=== PATIENT | male | born 1980 | race Caucasian/White ===

== ENCOUNTER 2017-08-05 16:28 | Emergency (ER) | payer MEDICAID, SELFPAY ==
[2017-08-05 16:30] VITALS: BP 141/81; PULSE 92; RESP 16; TEMP 36.7; O2SAT 95; BMI 82.3
--- NOTE | 2017-08-05 17:10 | RAD_ITS ---
XR Elbow Min 3 Views INDICATION: LEFT ELBOW INJURY 2 MONTHS AGO COMPARISON: None TECHNIQUE: 3 views of the left elbow FINDINGS: Anterior fat pad is nondisplaced. The osseous structures are well aligned. On the lateral view, there is a tiny calcific density seen adjacent to the coronoid process. The osseous structures are otherwise intact. RAD/Elbow min 3 Views IMPRESSION: Tiny calcific density adjacent to the coronoid process, may be degenerative, tiny avulsion fracture not excluded. There is no evidence of associated joint effusion. at 1735 Reported and signed by: Ronda Nino MD Electronically Signed: Ronda Nino MD at 16:33 EST Tel , Service support ,
--- NOTE | 2017-08-05 17:53 | ED.DCSUM_ITS ---
- ER Visit Summary Date of Service: 08/05/17 Chief Complaint: Left elbow pain History of Present Illness: The patient is a 36 M presenting for evaluation secondary left elbow pain. Patient states that about a month ago he grabbed an extremely heavy object and injured his left elbow. He states that he has had continuous pain. Patient states that he needs clearance for work. Pain is worse with movement denies fevers. Physical Examination: Left arm exam shows normal range of motion of the shoulder elbow wrist and hand. There is focal tenderness to palpation over the lateral epicondyle. No deformity. No warmth or erythema or joint effusion. Test Results: -3 view of the elbow Emergency Department Course and Treatment: Patient presents with symptoms of lateral epicondylitis and will be treated with a course of Naprosyn and released to work. Disposition: Discharge Impression: 1. Lateral epicondylitis, left This note was generated with [employer] dictation software. It may contain incorrect words, spelling, and punctuation that were not noted in review of the chart prior to signing ED Disposition - Plan for ED Patient: Disposition: Home or Assisted Living Chief Complaint: Upper Extremity Injury Diagnosis: Lateral epicondylitis of elbow Instructions: ED Epicondylitis Lateral Elbow Prescriptions: Naproxen [Naprosyn] 500 mg PO BID PRN #20 tab Referrals: Julissa Tyler [NON-STAFF] -
== END 2017-08-05 17:58 | disposition home or self-care (01) ==
PROVIDERS: Emergency Provider Emergency Medicine
DX: M77.12 Lateral epicondylitis, left elbow (principal)
CPT/HCPCS: 73080; 99283

== ENCOUNTER 2017-08-19 11:16 | Emergency (ER) | payer MEDICAID, SELFPAY ==
[2017-08-19 11:18] VITALS: BP 145/97; PULSE 99; RESP 16; TEMP 36.9; O2SAT 94; BMI 38.5
--- NOTE | 2017-08-19 12:11 | ED.DCSUM_ITS ---
- ER Visit Summary Date of Service: 08/19/17 Chief Complaint: Need note to return to work History of Present Illness: The patient is a 36 M seen on August 05, 2017 and diagnosed with a lateral epicondylitis. He was sent to the emergency room for clearance to return to work. He presently has no symptoms. Physical Examination: 36-year-old gentleman in no distress. Axillary, median, radial and ulnar function intact. There is no evidence of trauma to the extremity. There is no tenderness over the lateral medial epicondyle. Test Results: None are indicated Emergency Department Course and Treatment: Patient was given a note to return to work without restrictions Treatment Plan: Return to work without restrictions Disposition: Discharged to home Impression: Medical clearance to return to work This note was generated with [employer] dictation software. It may contain incorrect words, spelling, and punctuation that were not noted in review of the chart prior to signing ED Disposition - Plan for ED Patient: Disposition: Home or Assisted Living Chief Complaint: Upper Extremity Injury Instructions: ED Screening Exam Medical Nonurgent Referrals: Care Physician,No Primary [Primary Care Provider] - As Needed
== END 2017-08-19 12:21 | disposition home or self-care (01) ==
PROVIDERS: Emergency Provider Emergency Medicine
DX: Z02.79 Encounter for issue of other medical certificate (principal); Z72.0 Tobacco use
CPT/HCPCS: 99282

== ENCOUNTER 2017-08-23 12:03 | Emergency (ER) | payer MEDICAID, SELFPAY ==
[2017-08-23 12:03] VITALS: BP 149/86; PULSE 98; RESP 19; TEMP 36.9; O2SAT 96; BMI 37.3
--- NOTE | 2017-08-23 12:39 | ED.VISSUMM ---
- ER Visit Summary Date of Service: 08/23/17 Chief Complaint: [] Knee pain History of Present Illness: The patient is a 36 M [] morbidly obese, complaining of left knee pain. He is concerned for meniscal injury and is requesting an MRI. He denies any acute injury. Does report he has had previous laparoscopic knee repair 4 years ago. Denies warmth to the knee. No other complaints at this time. Reports minimal improvement with NSAIDs. Physical Examination: [] Morbidly obese male in no acute distress. Cardiovascular exam is regular rate and rhythm. Lungs lungs are clear to auscultation. Abdomen is soft and nontender. Examination the left knee shows a negative anterior/posterior drawer sign. No pain with valgus and varus stress. Minimal discomfort with Apley's compression test. Test Results: [] None. Emergency Department Course and Treatment: [] Patient was informed he would not be able to provide an MRI in the emergency department for his noncritical presentation. He was encouraged to find a primary care physician and get an outpatient evaluation. Treatment Plan: [] Discharge to follow-up with PCP. Disposition: [] Discharge, stable. Impression: [] Left knee pain This note was generated with [employer] dictation software. It may contain incorrect words, spelling, and punctuation that were not noted in review of the chart prior to signing ED Disposition - Plan for ED Patient: Chief Complaint: Lower Extremity Injury Referrals: Care Physician,No Primary [Primary Care Provider] -
--- NOTE | 2017-08-23 12:41 | ED.DEP ---
ED Disposition - Plan for ED Patient: Disposition: Home or Assisted Living Chief Complaint: Lower Extremity Injury Instructions: ED Knee Pain [facility] Referrals: Care Physician,No Primary [Primary Care Provider] -
== END 2017-08-23 12:49 | disposition home or self-care (01) ==
LOC: ED 12:45
PROVIDERS: Emergency Provider Emergency Medicine
DX: M25.562 Pain in left knee (principal); E66.01 Morbid (severe) obesity due to excess calories; Z68.37 Body mass index [BMI] 37.0-37.9, adult
CPT/HCPCS: 99282

== ENCOUNTER 2017-08-27 15:54 | Emergency (ER) | payer MEDICAID, SELFPAY ==
[2017-08-27 15:55] VITALS: BP 144/82; PULSE 94; RESP 18; TEMP 36.2; O2SAT 95; BMI 38.7
--- NOTE | 2017-08-27 16:04 | RAD_ITS ---
STUDY: X-RAY - UNILATERAL RIBS ( RIGHT ) WITH CHEST REASON FOR EXAM: Male, 36 years old. RIGHT LOW AXILLARY RIB PAIN TECHNIQUE - RIBS: 4 view(s) of the ribs. TECHNIQUE - CHEST: Single AP portable view of the chest. COMPARISON: None. FINDINGS - RIBS: Normal visualized ribs without a demonstrated fracture. FINDINGS - CHEST: The lungs are clear and expanded. There is no demonstrated pleural abnormality. Normal size heart. Normal mediastinum and erika. Normal visualized pulmonary arteries. Normal visualized aortic arch and descending thoracic aorta. Normal visualized thoracic spine. Normal visualized ribs, clavicles, and shoulders. There is no demonstrated abnormality of the visualized soft tissue structures of the upper abdomen. RAD/Ribs Uni Min 3V w/PA Chest IMPRESSION: RIBS: Normal x-ray examination of the ribs. CHEST: Normal x-ray examination of the chest. Electronically Signed: Eyad Roach MD at 16:44 EDT , Service support ,
[2017-08-27] MEDS: Lidocaine 5% Patch 1 PATCH TOPICAL (16:58)
--- NOTE | 2017-08-27 17:13 | ED.VISSUMM ---
- ER Visit Summary Date of Service: 08/27/17 Chief Complaint: Rib pain History of Present Illness: The patient is a 36 M presenting for evaluation secondary to rib pain. Patient states that today he coughed very forcibly and had a sudden onset of right anterior rib pain. Patient states that the pain is sharp and continuous worse with coughing breathing and palpation. Denies any shortness of breath with it. Patient is a longtime smoker. Denies any hemoptysis associated with this. Review of systems otherwise negative. Physical Examination: Vital signs within normal limits normal oxygenation. Well-nourished obese male no acute distress. Moist mucous membranes. Heart regular rate and rhythm. No murmurs rubs gallops or Efren's crunch. Lung sounds clear to auscultation bilaterally with bilaterally symmetric breath sounds. There is right anterior chest tenderness to palpation without any evidence of deformity crepitus or flail chest. Remainder physical otherwise unremarkable. Test Results: Right-sided rib series negative per radiology Emergency Department Course and Treatment: Patient presented secondary to rib pain after coughing. X-ray shows no evidence of pneumothorax or rib injury. Patient was treated with a lidocaine patch. Patient will be discharged with a course of the same, he also is requesting a refill on his Protonix which she will be provided. Disposition: Discharge Impression: 1. Right-sided rib sprain 2. Medication refill This note was generated with [employer] dictation software. It may contain incorrect words, spelling, and punctuation that were not noted in review of the chart prior to signing ED Disposition - Plan for ED Patient: Disposition: Home or Assisted Living Chief Complaint: Chest Other Diagnosis: Rib sprain Instructions: ED Strain Chest Wall Prescriptions: Lidocaine [Lidoderm] 1 ea TP DAILY #10 adh..patch Pantoprazole Sodium [Protonix] 40 mg PO DAILY #30 tab Additional Instructions: Followup with your PCP as needed
--- NOTE | 2017-08-27 17:17 | ED.DCSUM_ITS ---
- ER Visit Summary Date of Service: 08/27/17 Chief Complaint: Rib pain History of Present Illness: The patient is a 36 M presenting for evaluation secondary to rib pain. Patient states that today he coughed very forcibly and had a sudden onset of right anterior rib pain. Patient states that the pain is sharp and continuous worse with coughing breathing and palpation. Denies any shortness of breath with it. Patient is a longtime smoker. Denies any hemoptysis associated with this. Review of systems otherwise negative. Physical Examination: Vital signs within normal limits normal oxygenation. Well -nourished obese male no acute distress. Moist mucous membranes. Heart regular rate and rhythm. No murmurs rubs gallops or Efren's crunch. Lung sounds clear to auscultation bilaterally with bilaterally symmetric breath sounds. There is right anterior chest tenderness to palpation without any evidence of deformity crepitus or flail chest. Remainder physical otherwise unremarkable. Test Results: Right-sided rib series negative per radiology Emergency Department Course and Treatment: Patient presented secondary to rib pain after coughing. X-ray shows no evidence of pneumothorax or rib injury. Patient was treated with a lidocaine patch. Patient will be discharged with a course of the same, he also is requesting a refill on his Protonix which she will be provided. Disposition: Discharge Impression: 1. Right-sided rib sprain 2. Medication refill This note was generated with [employer] dictation software. It may contain incorrect words, spelling, and punctuation that were not noted in review of the chart prior to signing ED Disposition - Plan for ED Patient: Disposition: Home or Assisted Living Chief Complaint: Chest Other Diagnosis: Rib sprain Instructions: ED Strain Chest Wall Prescriptions: Lidocaine [Lidoderm] 1 ea TP DAILY #10 adh..patch Pantoprazole Sodium [Protonix] 40 mg PO DAILY #30 tab Additional Instructions: Followup with your PCP as needed
[2017-08-27 17:33] VITALS: PULSE 81; RESP 16; O2SAT 96
== END 2017-08-27 17:34 | disposition home or self-care (01) ==
PROVIDERS: Emergency Provider Emergency Medicine
DX: S23.41XA Sprain of ribs, initial encounter (principal); X58.XXXA Exposure to other specified factors, initial encounter; Y93.89 Activity, other specified; Y92.9 Unspecified place or not applicable; Z76.0 Encounter for issue of repeat prescription; K21.9 Gastro-esophageal reflux disease without esophagitis; Z72.0 Tobacco use
CPT/HCPCS: 71101; 99283

== ENCOUNTER 2017-09-08 13:15 | Emergency (ER) | payer MEDICAID, SELFPAY ==
[2017-09-08 13:16] VITALS: BP 141/96; PULSE 102; RESP 16; TEMP 36.4; O2SAT 96; BMI 38.7
--- NOTE | 2017-09-08 13:36 | ED.VISSUMM ---
- ER Visit Summary Date of Service: 09/08/17 Chief Complaint: Knee pain History of Present Illness: The patient is a 36 M who presents with knee pain on the left side. Patient states that he has had knee pain for greater than a month. He was seen in the emergency department in July. In fact this is his fifth ER visit but not necessarily for the same knee pain. He saw [facility] on Friday. He states he has a MRI scheduled for September 15. He states that the only thing he needs me to do today is to fully immobilize his knee. He states he is taking Mobic for pain but it is not helping. He would like his leg completely immobilized so he cannot use it. Physical Examination: Vital signs are stable Gen: Well-nourished well-developed Head: Normocephalic atraumatic Eyes: Perrl EOMI ENT: TMs clear no rhinorrhea moist mucous membranes Neck: Supple no lymphadenopathy no JVD nontender CVS: Regular rate rhythm no murmurs normal S1-S2 Respiratory: No distress clear to auscultation bilaterally chest nontender Abdomen: Soft nontender nondistended normal bowel sounds no masses Back: Nontender Extremity: Left knee shows ligaments to be stable. There is no effusion or swelling. Patient complains of tenderness to palpation along the joint line bilaterally. Skin: Normal color no rash Neuro: alert orientated ?3 CN II-XII intact normal strength sensation reflexes gait cerebellar Psych: Normal affect normal mood Emergency Department Course and Treatment: I did inform the patient that fully immobilizing him when not necessarily needed is not a good option. I told him I give him crutches and have him do weightbearing as tolerated for support. He is to follow-up after his MRI is scheduled. Impression: 1. Left knee pain This note was generated with [employer] dictation software. It may contain incorrect words, spelling, and punctuation that were not noted in review of the chart prior to signing ED Disposition - Plan for ED Patient: Disposition: Home or Assisted Living Chief Complaint: Lower Extremity Injury Instructions: ED Knee Pain [facility] Referrals: Care Physician,No Primary [Primary Care Provider] - Additional Instructions: Crutches or for touchdown weightbearing. Follow-up with [facility] as scheduled and obtained her MRI is scheduled.
[2017-09-08 13:41] VITALS: BP 138/70; PULSE 95; RESP 14; O2SAT 99
--- NOTE | 2017-09-08 13:42 | ED.DCSUM_ITS ---
- ER Visit Summary Date of Service: 09/08/17 Chief Complaint: Knee pain History of Present Illness: The patient is a 36 M who presents with knee pain on the left side. Patient states that he has had knee pain for greater than a month. He was seen in the emergency department in July. In fact this is his fifth ER visit but not necessarily for the same knee pain. He saw [facility] on Friday. He states he has a MRI scheduled for September 15. He states that the only thing he needs me to do today is to fully immobilize his knee. He states he is taking Mobic for pain but it is not helping. He would like his leg completely immobilized so he cannot use it. Physical Examination: Vital signs are stable Gen: Well-nourished well-developed Head: Normocephalic atraumatic Eyes: Perrl EOMI ENT: TMs clear no rhinorrhea moist mucous membranes Neck: Supple no lymphadenopathy no JVD nontender CVS: Regular rate rhythm no murmurs normal S1-S2 Respiratory: No distress clear to auscultation bilaterally chest nontender Abdomen: Soft nontender nondistended normal bowel sounds no masses Back: Nontender Extremity: Left knee shows ligaments to be stable. There is no effusion or swelling. Patient complains of tenderness to palpation along the joint line bilaterally. Skin: Normal color no rash Neuro: alert orientated ?3 CN II-XII intact normal strength sensation reflexes gait cerebellar Psych: Normal affect normal mood Emergency Department Course and Treatment: I did inform the patient that fully immobilizing him when not necessarily needed is not a good option. I told him I give him crutches and have him do weightbearing as tolerated for support. He is to follow-up after his MRI is scheduled. Impression: 1. Left knee pain This note was generated with [employer] dictation software. It may contain incorrect words, spelling, and punctuation that were not noted in review of the chart prior to signing ED Disposition - Plan for ED Patient: Disposition: Home or Assisted Living Chief Complaint: Lower Extremity Injury Instructions: ED Knee Pain [facility] Referrals: Care Physician,No Primary [Primary Care Provider] - Additional Instructions: Crutches or for touchdown weightbearing. Follow-up with [facility] as scheduled and obtained her MRI is scheduled.
== END 2017-09-08 13:52 | disposition home or self-care (01) ==
PROVIDERS: Emergency Provider Emergency Medicine
DX: M25.562 Pain in left knee (principal)
CPT/HCPCS: 99283

== ENCOUNTER 2017-10-22 21:20 | Emergency (ER) | payer MEDICAID, SELFPAY ==
[2017-10-22 21:21] VITALS: BP 158/82; PULSE 99; RESP 16; TEMP 36.6; O2SAT 96; BMI 39.2
--- NOTE | 2017-10-22 22:56 | ED.DCSUM_ITS ---
- ER Visit Summary Date of Service: 10/22/17 Chief Complaint: Diarrhea and dehydration History of Present Illness: The patient is a 36 M reports having diarrhea all day today. He has had some mild nausea but no vomiting. He felt feverish at home but did not measure his fever. Denies any prior abdominal surgeries. He said some mild abdominal cramping. He thinks he may have eaten something bad. He feels that he is dehydrated. Past history significant for reflux disease, high cholesterol, and asthma Physical Examination: Vital signs are significant for blood pressure 158/82, otherwise unremarkable. Patient is in no acute distress and appears nontoxic. Head and neck examination reveals mildly dry mucous membranes. Heart is regular rate and rhythm. Lung sounds are clear. Abdomen is soft and nontender. Hyperactive bowel sounds are noted throughout. Test Results: CBC reveals a white count 12.5 with 78% neutrophils. Chemistry studies unremarkable. Emergency Department Course and Treatment: Patient is given a liter IV fluids and Zofran. He is ordered Bentyl but refused it. He told the nurses not to take anything he never heard of. On repeat evaluation he is in no acute distress. He is asking for something to eat. Patient be discharged with instructions to follow bland diet. If diarrhea persists beyond another day he can try Imodium [id number]. Treatment Plan: [] Disposition: Discharge Impression: Diarrhea This note was generated with [employer] dictation software. It may contain incorrect words, spelling, and punctuation that were not noted in review of the chart prior to signing ED Disposition - Plan for ED Patient: Chief Complaint: Nausea/Vomiting/Diarrhea Referrals: Dayanna Perez,Julissa Tyler [Primary Care Provider] -
[2017-10-22] MEDS: 0.9% Normal Saline 1,000 ML 1000 ML IV (23:03)
[2017-10-22] MEDS: Ondansetron 4 MG/2 ML Vial IV (23:03)
[2017-10-22 23:15] LABS: Absolute Lymphocyte Count 1.54 X10^3/ul (0.83-4.51); Absolute Neutrophil Count 9.8 X10^3/uL (2.0-7.7); Basophil# 0.06 X10^3/uL; Basophil% 0.5 % (0-1); Eosinophil# 0.11 X10^3/uL; Eosinophils% 0.9 % (0-5); Hematocrit 47.3 % (40-54); Hemoglobin 16.4 g/dl (13.0-16.5); Lymphocyte # 1.54 X10^3/ul (4.0); Lymphocyte % 12.4 % (19-41); Mean Corp Hgb Conc 34.7 g/gl (32-36); Mean Corpuscular Hgb 27.2 pg (27.0-32.0); Mean Corpuscular Volume 78.3 fL (80-94); Mean Platelet Vol. 9.4 fl (6.2-12.0); Monocyte# 0.88 X10^3/uL; Monocyte% 7.1 % (0-10); Neutrophil # 9.79 X10^3/uL (2.7-7.7); Neutrophil % 78.5 % (47-70); Platelet Count 336 K/mm3 (150-450); RBC Distribution Width CV 15.1 % (11.6-14.6); RBC Distribution Width SD 43.3 fl (35.1-43.9); Red Blood Count 6.04 M/mm3 (4.6-6.2); White Blood Count 12.5 K/mm3 (4.4-11.0)
[2017-10-22 23:18] LABS: POSITIVE COUNT NO; POSITIVE DIFFERENTIAL NO; POSITIVE MORPHOLOGY NO
[2017-10-22 23:30] LABS: Anion Gap 5 (5-15); BUN 15 mg/dL (7-18); BUN/Creat Ratio 15.6 RATIO (10-20); Calcium,Total 9.1 mg/dL (8.5-10.1); Chloride 104 mmol/L (98-107); Creatinine, Serum 0.96 mg/dL (0.70-1.30); EST Glomerular Filtration Rate 92 mL/min (>60); Est Glom Filt Rate - Afr Amer 112 mL/min (>60); Estimated Creatinine Clearance 104.33 ml/min; Glucose 98 mg/dL (74-106); Sodium Level 135 mmol/L (136-145)
--- NOTE | 2017-10-22 23:44 | ED.DEP ---
ED Disposition - Plan for ED Patient: Disposition: Home or Assisted Living Chief Complaint: Nausea/Vomiting/Diarrhea Instructions: ED Diet Vomiting Diarrhea Referrals: Julissa Stephens [Primary Care Provider] - 3-5 Days if not improving
[2017-10-23 00:04] VITALS: BP 145/90; PULSE 94; O2SAT 96
== END 2017-10-23 00:05 | disposition home or self-care (01) ==
PROVIDERS: Emergency Provider Emergency Medicine
DX: E86.0 Dehydration (principal); R19.7 Diarrhea, unspecified; K21.9 Gastro-esophageal reflux disease without esophagitis; E78.00 Pure hypercholesterolemia, unspecified; J45.909 Unspecified asthma, uncomplicated; Z79.899 Other long term (current) drug therapy; Z72.0 Tobacco use
CPT/HCPCS: 80048; 85025; 96374; 99283; J7030; A4216; J2405

== ENCOUNTER 2023-08-21 13:56 | Emergency (ER) | payer MEDICAID, SELFPAY ==
[2023-08-21 13:57] VITALS: BP 146/98; PULSE 88; RESP 18; TEMP 36.6; O2SAT 97; BMI 42.2
--- OUTSIDE RECORDS SUMMARY | 2023-08-21 19:57 | XMS RPT_ITS | CCD ---
Author Name Unknown Address [address] [place] [address] Organization [facility] Care Team Providers Care Roving Teller Name Role Phone Unavailable Primary Care Provider UnavailJessenia Mark Primary Care Provider [phone] Unavailable Primary Care Provider Unavailabl e Unavailable Primary Care Provider UnavailDeep Ferris DO Primary Care Provider Tonie Johnson MD Unavailable Tonie Johnson MD Unavailable Chay Saunders MD Primary Care Provider Chay Saunders MD Primary Care Provider [phone] Allergies Allergy Classification Reported Allergen(s) Allergy Type Date of Onset Reaction(s) Facility (13 sources) Onion extract; Translations: [ONION] Drug Allergy 01-21-2013 Hives, Swelling, Itching, Rash [facility] Medications Current Medications Medication Drug Class(es) Dates Sig (Normalized) Sig (Original) Adhesive Tape (ADHESIVE 1 X6YD) TAPE (1 source) Start: 11-10-2021 Adhesive Tape (ADHESIVE 1 X6YD) TAPE Apply tape around gauze. 1 each 0 11/10/2021 Active bacitracin zinc 0.5 unt/mg topical ointment (1 source) Start: 11-10-2021 End: 11-20-2021 bacitracin 500 UNIT/GM ointment Apply topically 2 times daily. 1 each 0 11/10/2021 11/20/2021 Active famotidine 20 mg oral tablet (1 source) Histamine-2 Receptor Antagonist Start: 08-26-2021 End: 09-09-2021 take 1 tablet by mouth twice daily famotidine (PEPCID) 20 mg tablet Take 1 tablet by mouth twice daily for 14 days. 28 tablet 0 08/26/2021 09/09/2021 Active Completed/Discontinued Medications Medication Drug Class(es) Dates Sig (Normalized) Sig (Original) [id number] 200 actuat albuterol 0.09 mg/actuat metered dose inhaler (14 sources) beta2-Adrenergic Agonist Start: 08-25-2021 End: 09-24-2021 take 2 puff(s) by inhalation every four hours as needed for wheezing albuterol HFA (PROVENTIL HFA, VENTOLIN HFA) 90 mcg/actuation inhaler Inhale 2 Puffs as instructed every 4 hours as needed for wheezing/shortnes s of breath. 18 g 0 08/25/2021 Active Problems Active Problems Problem Classification Problem Date Documented Date Episodic/Chronic Biliary tract disease (3 sources) Cholelithiasis AND cholecystitis without obstruction; Translations: [Calculus of gallbladder with chronic cholecystitis without obstruction] Episodic Diabetes mellitus without complication (12 sources) Type 2 diabetes mellitus without complication; Translations: [Type 2 diabetes mellitus without complications] Onset: 08-07-2020 08-07-2020 Chronic Disorders of lipid metabolism (9 sources) Hyperlipidemia; Translations: [Hyperlipidemia, unspecified] Onset: 08-07-2020 08-07-2020 Chronic Esophageal disorders (9 sources) Gastroesophageal reflux disease; Translations: [Gastro-esophageal reflux disease without esophagitis] Onset: 08-07-2020 08-07-2020 Chronic Nonspecific chest pain (1 source) Chest pain; Translations: [Chest pain, unspecified type] Episodic Other non-traumatic joint disorders (2 sources) Knee pain; Translations: [Chronic pain of left knee] Onset: 08-07-2020 08-07-2020 Episodic Other nutritional; endocrine; and metabolic disorders (10 sources) Severe obesity; Translations: [Morbid (severe) obesity due to excess calories] Onset: 08-07-2020 08-07-2020 Chronic Other skin disorders (1 source) Foot callus; Translations: [Callus of foot] Episodic Residual codes; unclassified (10 sources) Tobacco user; Translations: [Nicotine dependence, unspecified, uncomplicated] Onset: 08-07-2020 08-07-2020 Chronic Skin and subcutaneous tissue infections (1 source) Superficial bacterial infection of skin; Translations: [Local infection of the skin and subcutaneous tissue, unspecified] Episodic Unclassified (1 source) Patient encounter status; Translations: [Screening for deficiency anemia] Unclassified (1 source) OPENED IN ERROR Past or Other Problems Problem Classification Problem Date Documented Da te Episodic/Chronic Other non-traumatic joint disorders (6 sources) Pain in left knee; Translations: [Pain in joint, lower leg] Onset: 08-07-2020 08-07-2020 Episodic Results Test Name Value Interpretation Reference Range Facil ity Vital Signs Date Time Vital Sign Value Performing Clinician Facility 11-13-2021 11:31-0400 Body height 172.7 cm Birdie Ahmadi MD Work Phone: [facility] 11-13-2021 11:31-0400 Body weight 115.67 kg Birdie Ahmadi MD Work Phone: [facility] 11-13-2021 11:31-0400 Diastolic blood pressure 72 mm[Hg] Birdie Ahmadi MD Work Phone: [facility] 11-13-2021 11:31-0400 Heart rate 78 /min Birdie Ahmadi MD Work Phone: [facility] 11-13-2021 11:31-0400 Respiratory rate 22 /min Birdie Ahmadi MD Work Phone: [facility] 11-13-2021 11:31-0400 Systolic blood pressure 126 mm[Hg] Birdie Ahmadi MD Work Phone: [facility] 11-10-2021 11:43-0400 Body height 172.7 cm Anderson Lawson MD Work Phone: [facility] 11-10-2021 11:43-0400 Body mass index (BMI) [Ratio] 38.77 kg/m2 Anderson Lawson MD Work Phone: [facility] 11-10-2021 11:43-0400 Body weight 115.67 kg Anderson Lawson MD Work Phone: [facility] 11-10-2021 11:41-0400 Body temperature 97.3 [degF] Anderson Lawson MD Work Phone: [facility] 11-10-2021 11:41-0400 Diastolic blood pressure 74 mm[Hg] Anderson Lawson MD Work Phone: [facility] 11-10-2021 11:41-0400 Heart rate 86 /min Anderson Lawson MD Work Phone: [facility] 11-10-2021 11:41-0400 Respiratory rate 19 /min Anderson Lawson MD Work Phone: [facility] 11-10-2021 11:41-0400 SaO2% (BldA) [Mass fraction] 93 % Anderson Lawson MD Work Phone: [facility] 11-10-2021 11:41-0400 Systolic blood pressure 142 mm[Hg] Anderson Lawson MD Work Phone: [facility] 09-04-2021 10:05-0400 Body height 172.7 cm Birdie Ahmadi MD Work Phone: [facility] 09-04-2021 10:05-0400 Body weight 119.3 kg Birdie Ahmadi MD Work Phone: [facility] 09-04-2021 10:05-0400 Diastolic blood pressure 81 mm[Hg] Birdie Ahmadi MD Work Phone: [facility] 09-04-2021 10:05-0400 Heart rate 77 /min Birdie Ahmadi MD Work Phone: [facility] 09-04-2021 10:05-0400 Respiratory rate 21 /min Birdie Ahmadi MD Work Phone: [facility] 09-04-2021 10:05-0400 Systolic blood pressure 134 mm[Hg] Birdie Ahmadi MD Work Phone: [facility] 10-19-2020 09:18-0400 Body height 172.7 cm [facility] Work Phone: 10-19-2020 09:18-0400 Body mass index (BMI) [Ratio] 30.41 kg/m2 [facility] Work Phone: 10-19-2020 09:18-0400 Body temperature 97.9 [degF] [facility] Work Phone: 10-19-2020 09:18-0400 Body weight 90.72 kg DOMINIQUE Work Phone: 10-19-2020 09:18-0400 Diastolic blood pressure 83 mm[Hg] JUAN CARLOSA Work Phone: 10-19-2020 09:18-0400 Heart rate 91 /min [facility] Work Phone: 10-19-2020 09:18-0400 Respiratory rate 18 /min [facility] Work Phone: 10-19-2020 09:18-0400 SaO2% (BldA) [Mass fraction] 98 % [facility] Work Phone: 10-19-2020 09:18-0400 Systolic blood pressure 132 mm[Hg] [facility] Work Phone: 09-20-2020 17:23-0400 BMI (Body Mass Index) 41.97 kg/m2 Sundeep FOX Work Phone: 09-20-2020 17:23-0400 Body Temperature 97.39 [degF] Sundeep FOX Work Phone: 09-20-2020 17:23-0400 Body weight 125.19 kg Sundeep FOX Work Phone: 09-20-2020 17:23-0400 BP Diastolic 78 mm[Hg] Sundeep FOX Work Phone: 09-20-2020 17:23-0400 BP Systolic 132 mm[Hg] Sundeep FOX Work Phone: 09-20-2020 17:23-0400 Height 172.7 cm Sundeep FOX Work Phone: 09-20-2020 17:23-0400 Pulse (Heart Rate) 100 /min Sundeep FOX Work Phone: 09-20-2020 17:23-0400 Pulse Oximetry 97 % Sundeep FOX Work Phone: 09-20-2020 17:23-0400 Respiratory Rate 16 /min Sundeep FOX Work Phone: 07-26-2020 14:46-0500 Body Temperature 97.9 [degF] [facility] 07-26-2020 14:46-0500 Body weight 125.19 kg [facility] 07-26-2020 14:46-0500 BP Diastolic 84 mm[Hg] [facility] 07-26-2020 14:46-0500 BP Systolic 139 mm[Hg] [facility] 07-26-2020 14:46-0500 Height 172.7 cm [facility] 07-26-2020 14:46-0500 Pulse (Heart Rate) 88 /min [facility] 07-26-2020 14:46-0500 Pulse Oximetry 97 % [facility] 07-26-2020 14:46-0500 Respiratory Rate 20 /min [facility] 07-07-2020 14:41-0500 Body Temperature 97.2 [degF] [facility] 07-07-2020 14:41-0500 Body weight 125.19 kg [facility] 07-07-2020 14:41-0500 BP Diastolic 82 mm[Hg] [facility] 07-07-2020 14:41-0500 BP Systolic 135 mm[Hg] [facility] 07-07-2020 14:41-0500 Height 172.7 cm [facility] 07-07-2020 14:41-0500 Pulse (Heart Rate) 94 /min [facility] 07-07-2020 14:41-0500 Pulse Oximetry 95 % [facility] 07-07-2020 14:41-0500 Respiratory Rate 18 /min [facility] Encounters Encounter Date Encounter Type Care Provider Facility Start: 12-01-2022 Emergency department patient visit Facility:[facility] Start: 11-15-2022 End: 11-15-2022 Emergency department patient visit Facility:[facility] Start: 11-14-2022 End: 11-15-2022 Emergency department patient visit Facility:[facility] Start: 11-14-2022 Emergency department patient visit Facility:[facility] Start: 02-04-2022 Refill Tonie Johnson MD Work Phone: [facility] Internal Medicine [facility] ([facility]) Procedures Date Procedure Procedure Detail Performing Clinician Start: 09-20-2020 Assay of troponin quantitative Sundeep Stanley [employer] Work Phone: Start: 09-20-2020 Basic metabolic pane l calcium total Sundeep Stanley [employer] Work Phone: Start: 09-20-2020 Blood count complete automated Sundeep Stanley [facility] Work Phone: Start: 09-20-2020 Ecg routine ecg w/le ast 12 lds w/i&r Sundeep Stanley [employer] Work Phone: Start: 07-26-2020 Adult depression scr eening assessment Jessenia Renee Plan of Treatment Date Care Activity Detail Author Start: 07-07-2025 LIPID SCREEN LIPID SCREEN [facility] Start: 06-04-2022 ANNUAL PCP TEAM CSR RETAIL AL DISEASE VISIT ANNUAL PCP TEAM CHRONIC DISEASE VISIT [facility] Start: 02-14-2022 Influenza vaccination INFLUENZA (#1) [facility] Start: 01-22-2022 COVID-19 VACCINE (#1) COVID-19 VACCI NE (#1) [facility] Immunizations Immunization Date Immunization Notes Care Provider Fa cility 12-14-2020 influenza virus vacc ine, unspecified formulation Birdie Ahmadi MD Work Phone: [facility] 06-16-2015 tetanus and diphther ia toxoids, adsorbed, preservative free, for adult use (2 Lf of tetanus toxoid and 2 Lf of diphtheria toxoid) Jessenia Renee [facility] Payers Date Payer Category Payer Medicaid [id number] 2020 Medicaid [place] [employer] [place] [employer] [id number] 2020-Present [phone] [address] [place] [address] Medicaid [id number] 2020 Unknown [id number] Social History Date Type Detail Facility Tobacco smoking stat us GAIS Unknown if ever smoked [facility] Start: 1980 Sex Assigned At Male C [facility] Start: 08-25-2021 End: 11-10-2021 Exposure to SARS-CoV-2 (event) Not sure [facility] Start: 07-26-2020 End: 10-23-2021 Tobacco smoking status GAIS Current every day smoker [facility] History of tobacco use Cigarette Smoker C [facility] Start: 07-26-2020 End: 10-23-2021 Cigarettes smoked current (pack per day) - Reported [facility] Start: 07-26-2020 End: 10-23-2021 Tobacco use and exposure Former user [facility] Start: 1980 Sex Assigned At Not on file S [facility] Work Phone: End: 04-25-2021 History of tobacco use Chews Tobacco [facility] Start: 09-04-2021 End: 11-13-2021 Alcohol intake Current drinker of alcohol (finding) [facility] Start: 12-08-2020 End: 08-25-2021 History SDOH Alcohol Comment socially [facility] Start: 12-08-2020 Tobacco use and exposure Smokeless tobacco non-user [facility] Work Phone: Start: 10-23-2021 History SDOH Alcohol Comment once a month [facility] Medical Equipment Procedure Code Equipment Code Equipment Origin al Text Equipment Identifier Dates Start: 07-07-2020 End: 12-21-2021 Clinical Notes 09-04-2021 to 02-04-2022 Telephone Encounter - Levon Montelongo RN - 02/04/2022 10:47 AM EDTTelephone Encounter - Jenae Pierce LPN - 12/21/2021 3:05 PM EDTTelephone Encounter - Cheyanne Hu - 12/03/2021 8:45 AM EDT Note Date & Type Note Facility 02-04-2022 Miscellaneous Notes Formattin g of this note is different from the original. Called the patient as he has not been seen in the past year. The patient is unable to make an appointment because he has now moved to [facility]. The pt has not found a new PCP. Informed the patient that I will continue to request one additional RX, but encouraged him to establish care with a new PCP as he will need a provider actively managing his care. [facility] providers to be removed as PCP in 30 days. Pharmacy faxed requesting the following refill Refill(s) Requested: Requested Prescriptions Pending Prescriptions Disp Refills atorvastatin (LIPITOR) 20 mg tablet 30 tablet 0 Sig: Take 1 tablet by mouth once daily. ALLERGIES Allergen Reactions Onion Hives, Swelling, Itching, Rash Other reaction(s): Vomiting raw, i can eat them cooked Raw onion Other reaction(s): Vomiting raw, i can eat them cooked Raw onion Raw onion Other reaction(s): Vomiting raw, i can eat them cooked Raw onion Raw onion Raw onion Other reaction(s): Vomiting raw, i can eat them cooked Raw onion Raw onion (home) [phone] (cell) Last Office Visit Date: 06/04/2021 Last [facility] Visit: Visit date not found Future Appointment: Visit date not found The patients preferred pharmacy has been captured for this encounter? yes Request is for script(s) to be escript to pharmacy. Reginald Dos Santos RN documented in this encounter [facility] 12-21-2021 Miscellaneous Notes Pharmacy requesting the following refill Pending Prescriptions Disp Refills TRUE METRIX GLUCOSE TEST STRIP 50 Strip 1 Sig: USE TWICE DAILY DIRECTED CARMEN: No Allergies: Onion (home) [phone] (cell) Patient last appointment: 06/04/2021 Next Appointment: Visit date not found The patients preferred pharmacy has been captured for this encounter? yes Request is for script(s) to be escript to pharmacy. Jenae Pierce LPN documented in this encounter [facility] 12-03-2021 Miscellaneous Notes Pharmacy faxed requesting the following refill Refill(s) Requested: Pending Prescriptions Disp Refills ATORVASTATIN 20 MG TABLET 30 tablet 1 Sig: TAKE 1 TABLET BY MOUTH EVERY DAY CARMEN: Yes ALLERGIES Allergen Reactions Onion Hives, Swelling, Itching, Rash Other reaction(s): Vomiting raw, i can eat them cooked Raw onion Other reaction(s): Vomiting raw, i can eat them cooked Raw onion Raw onion Other reaction(s): Vomiting raw, i can eat them cooked Raw onion Raw onion Raw onion Other reaction(s): Vomiting raw, i can eat them cooked Raw onion Raw onion (home) [phone] (cell) Last Office Visit Date: 06/04/2021 Last [facility] Visit: Visit date not found Future Appointment: Visit date not found The patients preferred pharmacy has been captured for this encounter? yes Request is for script(s) to be escript to pharmacy. Cheyanne Hu documented in this encounter [facility] 11-13-2021 History of Presen t illness Narrative Birdie Velez is a 40 year old male who is here for his first post-op visit. He is status post laparoscopic cholecystectomy. He presents today for follow-up. He did call afterwards and still complaining of abdominal pain and chest pain so he went to the emergency department. Work-up was negative. He did have some labs which showed a mildly elevated white blood cell count which she has had for the past year. AST and ALT and alk phos are mildly elevated. I suspect secondary to being postoperatively. Operative findings reviewed with him in detail. Pathology was consistent with chronic cholecystitis and cholelithiasis. He states his preoperative symptoms have resolved. ALLERGIES Allergen Reactions Onion Hives, Swelling, Itching, Rash Other reaction(s): Vomiting raw, i can eat them cooked Raw onion Other reaction(s): Vomiting raw, i can eat them cooked Raw onion Raw onion Other reaction(s): Vomiting raw, i can eat them cooked Raw onion Raw onion Raw onion Other reaction(s): Vomiting raw, i can eat them cooked Raw onion Raw onion Current Outpatient Medications Medication Sig albuterol HFA (PROVENTIL HFA, VENTOLIN HFA) 90 mcg/actuation inhaler Inhale 2 Puffs as instructed every 6 hours as needed. metFORMIN (GLUCOPHAGE) 500 mg tablet TAKE 1 TABLET BY MOUTH TWICE A DAY WITH MEALS atorvastatin (LIPITOR) 20 mg tablet TAKE 1 TABLET BY MOUTH EVERY DAY oxyCODONE IR (ROXICODONE) 5 mg immediate release tablet Take 1 tablet by mouth every 6 hours as needed for pain. (Patient not taking: Reported on 11/13/2021) pantoprazole DR (PROTONIX) 40 mg tablet Take 1 tablet by mouth once daily. albuterol HFA (PROVENTIL HFA, VENTOLIN HFA) 90 mcg/actuation inhaler Inhale 2 Puffs as instructed every 4 hours as needed for wheezing/shortness of breath. blood sugar diagnostic (TRUE METRIX GLUCOSE TEST STRIP) test strip USE TWICE DAILY DIRECTED pantoprazole DR (PROTONIX) 40 mg tablet Take 1 tablet by mouth once daily. Lancets lancets Check blood sugar BID - match with the glucometer No current facility-administered medications for this visit. PHYSICAL EXAM: BP 126/72 Pulse 78 Resp 22 Ht 5' 8 (1.73m) Wt 255 lb (115.7kg) BMI 38.78 kg/(m^2). General Appearance: Well appearing, alert, in no acute distress, well-hydrated, well nourished. and Overweight. Abdomen: Soft. Periumbilical/incisional tenderness. Incisions healing okay. Abdomen otherwise nontender. Op & Path findings reviewed with patient / family and all questions were answered. Assessment: Calculus of gallbladder with chronic cholecystitis without obstruction (primary encounter diagnosis) Type 2 diabetes mellitus without complication, without long-term current use of insulin ([facility]) Plan: ASSESSMENT/PLAN: 1. Calculus of gallbladder with chronic cholecystitis without obstruction - ICD9: 574.10, ICD10: K80.10 (primary diagnosis) Status post laparoscopic cholecystectomy. He will follow-up again in 4 weeks for reevaluation. Call sooner for any issues or concerns. - CBC - COMP METABOLIC PANEL 2. Type 2 diabetes mellitus without complication, without long-term current use of insulin (HCC) - ICD9: 250.00, ICD10: E11.9 Controlled. -Management per primary Birdie Ahmadi M.D., F.A.C.S. documented in this encounter [facility] 11-13-2021 Instructions Birdie Ahmadi MD - 11/13/2021 11:50 AM EDT Thank you for coming to see me today. It is my pleasure to take care of you. If you have any questions regarding your visit, please don't hesitate to contact us. documented in this encounter [facility] 09-04-2021 Instructions Birdie Ahmadi MD - 09/04/2021 10:18 AM EDT Images from the original note were not included. Thank you for coming to see me today. It is my pleasure to take care of you. If you have any questions regarding your visit, please don't hesitate to contact us. Laparoscopic Cholecystectomy (Gallbladder Removal) What is a laparoscopic cholecystectomy (gallbladder removal)? A laparoscopic cholecystectomy is a surgery during which the doctor removes your gallbladder. This procedure uses several small cuts instead of one large one. A laparoscope, a narrow tube with a camera, is inserted through one incision. This allows your doctor to see your gallbladder on a screen. Your gallbladder is then removed through another small incision. When is a laparoscopic cholecystectomy used? The procedure is used when you have stones in your gallbladder. The gallbladder stores bile, a fluid made by your liver. Bile helps digest fats in the foods you eat. Gallstones can block the flow of bile in your digestive system. This blockage can cause bloating, nausea, vomiting, and pain in your abdomen, shoulder, back, or chest. Gallstones can also block the ducts that channel the bile from the liver or gallbladder to the intestine. Gallstones can cause the gallbladder to become infected. A blockage in the common bile duct can cause jaundice (yellowing of your skin or eyes) or irritate the pancreas. Gallbladder and surrounding anatomy What happens during the surgery? A general anesthetic is given to relax your muscles, prevent pain, and help you fall asleep. Your abdomen is inflated with carbon dioxide, a harmless gas. The laparoscope is then inserted through a cut in your navel, so your doctor can look inside. A cholangiogram (a special X-ray) may be done while the surgery is going on to check for stones in your common bile duct. Other instruments are then inserted through additional small incisions. Your gallbladder is removed through one of these incisions. What are the potential risks and complications? The risk of complications is very low, however, potential risks might include: Bleeding Infection Common bile duct injury Minor shoulder pain (from the carbon dioxide gas) Bile leakage What are the benefits of laparoscopic cholecystectomy? Less discomfort than regular surgery [place] [facility] stay, with a quicker recovery time compared to regular (open) surgery Smaller scars than regular surgery Call your doctor if you experience: Increasing pain and redness at an incision (cut) site Fever higher than 101 degrees Draining at the incision site that increases or becomes foul smelling What is an open cholecystectomy? A cholecystectomy is the removal of your gallbladder through a cut in the upper abdomen. An open cholecystectomy might be required instead of a laparoscopic cholecystectomy because of: Major scarring from a previous surgery A bleeding disorder A condition that would make it difficult to see through the laparoscope What happens during an open cholecystectomy? A general anesthetic is given to relax your muscles, prevent pain, and help you fall asleep. A single cut is made below the right side of your rib cage or in the center of the abdomen. Your doctor can see the gallbladder and surrounding anatomy through the cut. The gallbladder is cut away from surrounding tissue. The blood supply is tied off and divided. Sometimes a cholangiogram (a special X-ray) is done to check for stones in the common bile duct. If there are stones in the common bile duct, they are removed at this time. The skin is closed using surgical clips and stitches. References [employer]. Cholecystectomy Accessed 12/22/2015. [employer]. Laparoscopic Gallbladder Removal (Patient Information from [employer] Accessed 12/22/2015. Copyright [id number] [facility]. All rights reserved documented in this encounter [facility] 09-04-2021 History of Presen t illness Narrative Birdie Velez is a 40 year old White male who presents with complaints of right upper quadrant abdominal pain. This is been going on for a while. He ended up having an ultrasound which revealed cholelithiasis and his pain did bring him to the emergency department. He states he has had this pain before but not as severe. He notices the pain after eating fatty foods. He also has reflux symptoms and is on pantoprazole but this feels different from his reflux symptoms. His pantoprazole does help his reflux symptoms. PAST MEDICAL HISTORY Diagnosis Date Anxiety state Arthritis Asthma GERD (gastroesophageal reflux disease) HTN (hypertension) Hypercholesteremia Morbid obesity with BMI of 40.0-44.9, adult ([facility]) Type 2 diabetes mellitus, without long-term current use of insulin ([facility]) PAST SURGICAL HISTORY Procedure Laterality Date ARTHROSCOPY KNEE DIAGNOSTIC W/WO SYNOVIAL BX SPX Left 2013 CRANIO/MAXILLO-FACIAL SURGERY 1999 F EGD WITH REMOVAL FOREIGN BODY 12/21/2018 Dr. Lon Miller at [facility]; removal of meat bolus Social History Tobacco Use Smoking status: Current Every Day Smoker Packs/day: 1.50 Years: 25.00 Pack years: 37.50 Types: Cigarettes Smokeless tobacco: Former User Types: Chew Vaping Use Vaping Use: Former Substance Use Topics Alcohol use: Yes Comment: socially Drug use: Not Currently No family history on file. ALLERGIES Allergen Reactions Onion Hives, Swelling, Itching, Rash Other reaction(s): Vomiting raw, i can eat them cooked Raw onion Other reaction(s): Vomiting raw, i can eat them cooked Raw onion Raw onion Other reaction(s): Vomiting raw, i can eat them cooked Raw onion Raw onion Raw onion Other reaction(s): Vomiting raw, i can eat them cooked Raw onion Raw onion Current Outpatient Medications Medication Sig ondansetron (ZOFRAN) 4 mg tablet Take by mouth. famotidine (PEPCID) 20 mg tablet Take 1 tablet by mouth twice daily for 14 days. sucralfate (CARAFATE) 1 gram tablet Take 1 tablet by mouth four times daily for 14 days. albuterol HFA (PROVENTIL HFA, VENTOLIN HFA) 90 mcg/actuation inhaler Inhale 2 Puffs as instructed every 6 hours as needed. blood sugar diagnostic (TRUE METRIX GLUCOSE TEST STRIP) test strip USE TWICE DAILY DIRECTED metFORMIN (GLUCOPHAGE) 500 mg tablet TAKE 1 TABLET BY MOUTH TWICE A DAY WITH MEALS atorvastatin (LIPITOR) 20 mg tablet TAKE 1 TABLET BY MOUTH EVERY DAY pantoprazole DR (PROTONIX) 40 mg tablet Take 1 tablet by mouth once daily. albuterol HFA (PROVENTIL HFA, VENTOLIN HFA) 90 mcg/actuation inhaler Inhale 2 Puffs as instructed every 4 hours as needed for wheezing/shortness of breath. pantoprazole DR (PROTONIX) 40 mg tablet Take 1 tablet by mouth once daily. Lancets lancets Check blood sugar BID - match with the glucometer No current facility-administered medications for this visit. REVIEW OF SYSTEMS PAIN ASSESSMENT: Negative for pain, history of chronic pain, or current treatment for a chronic pain condition. GENERAL: No weight loss, malaise or fevers NECK: Negative for lumps, goiter, pain and significant neck swelling RESPIRATORY: Negative for cough, hemoptysis, wheezing, COPD, dyspnea or shortness of breath CARDIOVASCULAR: Negative for chest pain, leg swelling, hypertension, CHF or palpitations GI: See HPI : No history of dysuria, frequency or incontinence MUSCULOSKELETAL: Negative for joint pain or swelling, back pain or muscle pain HEMATOLOGY/LYMPHOLOGY: Negative for prolonged bleeding, bruising easily or swollen nodes ENDOCRINE: Negative for cold or heat intolerance, polyuria, polydipsia and goiter PHYSICAL EXAM: BP 134/81 Pulse 77 Resp 21 Ht 5' 8 (1.73m) Wt 263 lb (119.3kg) BMI 40.00 kg/(m^2). General Appearance: Well appearing, alert, in no acute distress, well-hydrated, well nourished. and Obese. Eyes: Normal sclera Lungs: Lungs clear to auscultation. No wheezing, rhonchi, rales.. Heart: RRR without murmur, gallop, or rubs. No ectopy. Abdomen: Negative findings: no masses palpable, no organomegaly, liver span normal to percussion and spleen non-palpable, Positive findings: tenderness mild RUQ. Assessment: Calculus of gallbladder with chronic cholecystitis without obstruction (primary encounter diagnosis) Type 2 diabetes mellitus without complication, without long-term current use of insulin ([facility]) Tobacco use disorder Class 3 severe obesity due to excess calories with serious comorbidity and body mass index (bmi) of 40.0 to 44.9 in adult ([facility]) Plan: ASSESSMENT/PLAN: 1. Calculus of gallbladder with chronic cholecystitis without obstruction - ICD9: 574.10, ICD10: K80.10 (primary diagnosis) Given his symptoms, I do believe he would benefit from a laparoscopic cholecystectomy. The procedure was reviewed in detail including the risks, benefits and complications inherent to the procedure. These include, but are not limited to, bleeding, infection, other organ injury, bile leak, bile duct injury necessitating further surgery. The patient understood and was agreeable to proceed. 2. Type 2 diabetes mellitus without complication, without long-term current use of insulin ([facility]) - ICD9: 250.00, ICD10: E11.9 Controlled. 3. Tobacco use disorder - ICD9: 305.1, ICD10: F17.200 - Cessation encouraged. - Physiologic and physical aspects of tobacco addiction as well as strategies for quitting were discussed. - Counseling was given focusing on the harmful effects of this addiction especially given the patient's medical condition(s) which will be worsened because of the chemicals in tobacco. - Counseling was given 3-4 minutes. 4. Class 3 severe obesity due to excess calories with serious comorbidity and body mass index (BMI) of 40.0 to 44.9 in adult ([facility]) - ICD9: 278.01, V85.41, ICD10: E66.01, Z68.41 Stable I spent a total of 30 minutes on the date of the service which included preparing to see the patient, [id number] patient care, completing clinical documentation, obtaining and/or reviewing separately obtained history, performing a medically appropriate examination, counseling and educating the patient/family/caregiver, ordering medications, tests, or procedures and communicating with other HCPs (not separately reported). Birdie Ahmadi M.D., F.A.C.S. documented in this encounter [facility] Work Phone: Evaluation note* Diagnosis Calculus of gallbladder with chronic cholecystitis without obstruction- Primary Calculus of gallbladder with other cholecystitis, without mention of obstruction Type 2 diabetes mellitus without complication, without long-term current use of insulin ([facility]) Tobacco use disorder Class 3 severe obesity due to excess calories with serious comorbidity and body mass index (BMI) of 40.0 to 44.9 in adult ([facility]) documented [facility] Diagnosis Calculus of gallbladder with chronic cholecystitis without obstruction- Primary Calculus of gallbladder with other cholecystitis, without mention of obstruction Calculus of gallbladder with chronic cholecystitis without obstruction Calculus of gallbladder with other cholecystitis, without mention of obstruction documented [facility] this encounter [facility]* Diagnosis Superficial bacterial skin infection- Primary Cellulitis and abscess of unspecified site [facility] Work Phone: Evaluation note* Diagnosis Calculus of gallbladder with chronic cholecystitis without obstruction- Primary Calculus of gallbladder with other cholecystitis, without mention of obstruction Type 2 diabetes mellitus without complication, without long-term current use of insulin ([facility]) documented in this encounter [facility]* Diagnosis Type 2 diabetes mellitus without complication, without long-term current use of insulin (HCC) documented in this encounter [facility] Discharge instructions* Attachments The following attachments cannot be sent through Care Everywhere. * Well Visit: 18 to 50 Years ([place]) [facility]: Hospital Discharge instructions* Attachments The following attachments cannot be sent through Care Everywhere. * Surgical Site Infections: Prevention: General Info ([place]) [facility] Work Phone: Reason for Referral Status Reason Specialty Diagnoses / Procedures Referred By Contact Referred To Contact Authorized PCP Requested Referral Diagnoses Type 2 diabetes mellitus without complication, without long-term current use of insulin (HCC) Procedures CONSULT TO DIABETES EDUCATION NEW PATIENT VISIT LEVEL 5 [address] [place] [address] Status Reason Specialty Diagnoses / Procedures Referred By Contact Referred To Contact Authorized PCP Requested Referral Podiatry Diagnoses Type 2 diabetes mellitus without complication, without long-term current use of insulin (HCC) Callus of foot Procedures CONSULT TO PODIATRY NEW PATIENT VISIT LEVEL [address] [address] Status Reason Specialty Diagnoses / Procedures Referred By Contact Referred To Contact Authorized PCP Requested Referral Orthopedics Diagnoses Chronic pain of left knee Procedures CONSULT TO [facility]ED[facility] [address] Status Reason Specialty Diagnoses / Procedures Referred By Contact Referred To Contact Authorized PCP Requested Referral Gastroenterology Diagnoses Gastroesophageal reflux disease, unspecified whether esophagitis present Procedures CONSULT TO GASTROENTEROLOGY NEW PATIENT VISIT LEVEL [address] [address] History of Present Illness * Jessenia Renee - 07/07/2020 2:35 PM EST Subjective: Birdie Velez is a 39 year old White male, Patient presents with: Establish Care . HPI New patient. Here to establish care. Former PCP Dr. Wakefield in [facility]. Moved to [place] few months ago. Patient was diagnosed with DM, A1c reported in 03/2020 was 8.9 Has not been complaint with his meds or visits. Started on Metformin 500mg BID and soon thereafter he moved to [place] and never followed up. Ran out of his meds 1 month ago. Ran out of strips 1 week ago but prior to that states F - 120-130s No low sugars except one was 80. HPL - was on meds for it 3 yrs ago - felt it wasn't making him 'feel right', so he stopped it on his own. H/o Asthma, exercise induced - albuterol MDI PRN - last used 2 months ago. GERD - been on Protonix for 5 yrs, has been on 40mg daily but increased it to 40mg BID on his own as he felt that it was not helping. Trigger foods - fried/ spicy foods / pizza sauce- has been avoiding those foods. Drinks coffee/ pop 'all day every day'. States that he hasnt been able to 'manage weight as well'. Weight gain ~ 25 lbs in the past 3 months. No past medical history on file. No past surgical history on file. LT knee arthroscopy. Tooth abscess requiring I/D Social History Tobacco Use Smoking status: Not on file Substance Use Topics Alcohol use: Not on file Drug use: Not on file Smokes 1- 1.5PPD Alcohol - once in 6 months. H/o THC - last use was 20 yrs ago No IVDA/ cocaine. No family history on file. Mother/ Brother - DM ALLERGIES Allergen Reactions Onion Hives, Swelling, Itching, Rash Other reaction(s): Vomiting raw, i can eat them cooked Raw onion Other reaction(s): Vomiting raw, i can eat them cooked Raw onion Raw onion Other reaction(s): Vomiting raw, i can eat them cooked Raw onion Raw onion Raw onion Other reaction(s): Vomiting raw, i can eat them cooked Raw onion Raw onion Current Outpatient Medications Medication Sig albuterol HFA (PROVENTIL HFA, VENTOLIN HFA) 90 mcg/actuation inhaler Inhale 2 Puffs as instructed every 6 hours as needed. ibuprofen (MOTRIN) 800 mg tablet take 1 tablet by mouth three times a day pantoprazole DR (PROTONIX) 40 mg tablet Take 40 mg by mouth twice daily. No current facility-administered medications for this visit. Review of Systems Constitutional: Negative for chills, fever and malaise/fatigue. HENT: Negative for congestion, ear pain and sore throat. Eyes: Negative for blurred vision (wears glasses, last eye exam was 3 yrs ago) and double vision. Respiratory: Negative for cough, shortness of breath and wheezing. Cardiovascular: Negative for chest pain, palpitations and leg swelling. Gastrointestinal: Negative for abdominal pain, blood in stool, constipation, diarrhea, melena, nausea and vomiting. Genitourinary: Negative for dysuria and hematuria. Skin: Negative for rash. Neurological: Negative for dizziness and headaches. Psychiatric/Behavioral: Negative for depression and suicidal ideas. BP 135/82 Pulse 94 Temp 97.2 Resp 18 Ht 5' 8 (1.73m) Wt 276 lb (125.2kg) SpO2 95% BMI 41.98 kg/(m^2). Physical Exam Constitutional: He is oriented to person, place, and time and well-developed, well-nourished, and in no distress. No distress. HENT: Head: Normocephalic. Eyes: Pupils are equal, round, and reactive to light. Conjunctivae are normal. Right eye exhibits no discharge. Left eye exhibits no discharge. Cardiovascular: Normal rate, regular rhythm, normal heart sounds and intact distal pulses. No murmur heard. Pulmonary/Chest: Effort normal and breath sounds normal. No respiratory distress. He has no wheezes. Abdominal: Soft. Bowel sounds are normal. He exhibits no distension (mild tenderenss in the epigastric region.). There is no abdominal tenderness. Musculoskeletal: General: Edema: no LE edema. Cervical back: Neck supple. Lymphadenopathy: He has no cervical adenopathy. Neurological: He is alert and oriented to person, place, and time. Skin: Skin is warm and dry. Psychiatric: Mood and affect normal. ASSESSMENT/PLAN: 1. Type 2 diabetes mellitus without complication, without long-term current use of insulin (HCC) - ICD9: 250.00, ICD10: E11.9 (primary diagnosis) The patient is new to me. - pt states he needs refills on metformin today though he has been out of meds for > 1 mth. D/w pt that he needs to get blood work done first to ensure renal function is ok before I can send refills in. - Blood glucose monitoring on a once a day and twice a day schedule - Follow up in 1 month, sooner should any other issues arise. - Discussed diabetic education issues of hypoglycemic symptoms, hyperglycemic symptoms, diet and medications- side effects and need for compliance with patient. - BP goal of <130/80 - LDL goal of <100 - Check labs - CBC/ CMP/ A1c. - CONSULT TO DIABETES EDUCATION - HGB A1C - BLOOD GLUCOSE TEST STRIPS - BLOOD-GLUCOSE METER - LANCETS 2. Hyperlipidemia, unspecified hyperlipidemia type - ICD9: 272.4, ICD10: E78.5 - to be determined upon return of lab results - Encouraged following a low fat, low cholesterol diet. - Discussed the benefits of regular aerobic exercise and weight loss. - Check fasting lipid panel - COMP METABOLIC PANEL - LIPID PANEL BASIC 3. Gastroesophageal reflux disease, unspecified whether esophagitis present - ICD9: 530.81, ICD10: K21.9 - Discussed lifestyle modifications including losing weight, limiting caffeine, no meals three hours before sleep and head of bed elevation - Continue treatment with Pantoprazole 40mg though advised him to take it daily 4. Class 3 severe obesity due to excess calories with serious comorbidity and body mass index (BMI)of 40.0 to 44.9 in adult (HCC) - ICD9: 278.01, V85.41, ICD10: E66.01, Z68.41 Weight increasing - Behavioral intervention. Counseled patient regarding lifestyle changes including diet and exercise. 5. Tobacco use disorder - ICD9: 305.1, ICD10: F17.200 - Cessation encouraged. - Physiologic and physical aspects of tobacco addiction as well as strategies for quitting were discussed. - Counseling was given focusing on the harmful effects of this addiction especially given the patient's medical condition(s) which will be worsened because of the chemicals in tobacco. - Counseling was given 3-4 minutes. 6. Screening for deficiency anemia - ICD9: V78.1, ICD10: Z13.0 - CBC On review of EMR after pt left - OV on 04/11/20 for recent diagnosis of DM - was sent to ER for elev WBC. Interestingly pt was reported to be 'ambulating in electric WC' though pt was ambulating without difficulty today. Also noted per PT note 08/05/19 - 'pt arrived in a [employer] HD power wheelchair which he purchased used. He is seeking to be authorized for a new wheelchair thru his insurance company as the current wheelchair is not meeting his needs. Despite these findings patient does not currently have a rehabilitation diagnosis, I was unable to locate any imaging whether spine, hip, LE to identify cause of symptoms. Would recommend further workup (Orthopedics, Neurology) for a diagnosis. Will address at next OV. Discussed above plan with patient. Pt agreeable with above plan. Jessenia Renee MD This note was partially generated using [employer] voice recognition system, and there may be some incorrect words, spellings, and punctuation that were not noted in checking the note before saving. documented in this encounter* Cecelia Townsend (Conchis), CONCHIS - 07/26/2020 2:48 PM EST Depression Screening: Little interest or pleasure in doing things: 0 - Not at all Feeling down, depressed or hopeless: 0 - Not at all Score (Questions 1 & 2): 0 Total Score (All Questions): 0 * Jessenia Renee - 07/26/2020 2:32 PM EST Subjective: Birdie Velez is a 39 year old White male, Patient presents with: Bilateral feet pain: Burning X 4 days HPI Seen as new pt 1 month ago. DM2 - Sugars have improved. This am was 224 - ate cookies last night. F - 116-134 in the past. No low sugars. Has been tolerating Metformin well. HPL - tolerating it well. Was recently starting on atorvastatin. C/o pain b/l feet, started a new job where he has to be on his feet for ~ 8 hrs - bottom of foot was burning X4d, then stopped yesterday and hasnt recurred. Has been off work since yesterday. No burning now at all. Has been wearing tennis shoes, feels they are comfortable. No h/o foot pain in the past. Has noticed that his feet sweat a lot. Had mild Lt knee swelling which has also resolved since yesterday. Heartburn - restarted 2 d ago, still taking pantoprazole 40mg daily ( was taking it BID on his own), admits to not making lifestyle changes. Has chronic Lt knee pain, had meniscal tear f/b repair. Was using a knee brace but lost that brace - needs new Rx. No past medical history on file. No past surgical history on file. Social History Tobacco Use Smoking status: Current Every Day Smoker Packs/day: 1.50 Types: Cigarettes Smokeless tobacco: Former User Substance Use Topics Alcohol use: Not on file Drug use: Not on file ALLERGIES Allergen Reactions Onion Hives, Swelling, Itching, Rash Other reaction(s): Vomiting raw, i can eat them cooked Raw onion Other reaction(s): Vomiting raw, i can eat them cooked Raw onion Raw onion Other reaction(s): Vomiting raw, i can eat them cooked Raw onion Raw onion Raw onion Other reaction(s): Vomiting raw, i can eat them cooked Raw onion Raw onion Current Outpatient Medications Medication Sig atorvastatin (LIPITOR) 20 mg tablet Take 1 tablet by mouth once daily. pantoprazole DR (PROTONIX) 40 mg tablet Take 1 tablet by mouth once daily. metFORMIN (GLUCOPHAGE) 500 mg tablet Take 1 tablet by mouth twice daily with meals. albuterol HFA (PROVENTIL HFA, VENTOLIN HFA) 90 mcg/actuation inhaler Inhale 2 Puffs as instructed every 6 hours as needed. blood sugar diagnostic (BLOOD GLUCOSE TEST) test strip check sugar BID - match with glucometer Blood-Glucose Meter 1 Each as needed. Trumetrix Lancets lancets Check blood sugar BID - match with the glucometer ibuprofen (MOTRIN) 800 mg tablet take 1 tablet by mouth three times a day No current facility-administered medications for this visit. Review of Systems Constitutional: Negative for chills, fever, malaise/fatigue and weight loss. HENT: Negative for congestion, ear pain and sore throat. Eyes: Negative for blurred vision. Respiratory: Negative for cough, shortness of breath and wheezing. Cardiovascular: Negative for chest pain, palpitations and leg swelling. Gastrointestinal: Positive for heartburn. Negative for abdominal pain, blood in stool, constipation, diarrhea, melena, nausea and vomiting. Genitourinary: Negative for dysuria and hematuria. Skin: Negative for rash. Neurological: Negative for dizziness and headaches. BP 139/84 Pulse 88 Temp 97.9 Resp 20 Ht 5' 8 (1.73m) Wt 276 lb (125.2kg) SpO2 97% BMI 41.98 kg/(m^2). Physical Exam Constitutional: He is oriented to person, place, and time and well-developed, well-nourished, and in no distress. No distress. HENT: Head: Normocephalic. Cardiovascular: Normal rate, regular rhythm, normal heart sounds and intact distal pulses. No murmur heard. Pulmonary/Chest: Effort normal and breath sounds normal. No respiratory distress. He has no wheezes. Abdominal: Soft. Bowel sounds are normal. He exhibits no distension. There is no abdominal tenderness. Musculoskeletal: General: Edema: no LE edema. Neurological: He is alert and oriented to person, place, and time. Skin: Skin is warm and dry. Psychiatric: Mood and affect normal. Feet:Shoes and socks removed, Are you having foot pain - no, normal distal pulses, sensitive to 10 gm monofilament and vibratory perception normal. + callus. Very malodorous feet. ASSESSMENT/PLAN: 1. Type 2 diabetes mellitus without complication, without long-term current use of insulin ([facility]) - ICD9: 250.00, ICD10: E11.9 (primary diagnosis) The patient is new to me. - Continue current medications - Blood glucose monitoring on a once a day schedule - Encouraged regular aerobic exercise and weight loss - Follow up in 2 months, sooner should any other issues arise. 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 - BP goal of <130/80 - LDL goal of <100 - Patient urged to quit smoking. - CONSULT TO PODIATRY 2. Hyperlipidemia, unspecified hyperlipidemia type - ICD9: 272.4, ICD10: E78.5 - newly diagnosed - Begin treatment with atorvastatin (Lipitor) 10 mg - Encouraged following a low fat, low cholesterol diet. - Discussed the benefits of regular aerobic exercise and weight loss. 3. Gastroesophageal reflux disease, unspecified whether esophagitis present - ICD9: 530.81, ICD10: K21.9 - Discussed lifestyle modifications including losing weight, limiting caffeine, no meals three hours before sleep and head of bed elevation - Continue treatment with pantoprazole 40mg daily - Refer for GI consult - CONSULT TO GASTROENTEROLOGY 4. Chronic pain of left knee - ICD9: 719.46, 338.29, ICD10: M25.562, G89.29 Needs referral - CONSULT TO ORTHOPAEDICS 5. Class 3 severe obesity due to excess calories with serious comorbidity and body mass index (BMI)of 40.0 to 44.9 in adult ([facility]) - ICD9: 278.01, V85.41, ICD10: E66.01, Z68.41 Stable - Behavioral intervention 6. Callus of foot - ICD9: 700, ICD10: L84 - CONSULT TO PODIATRY 7. Tobacco use disorder - ICD9: 305.1, ICD10: F17.200 - Cessation encouraged. Pt not motivated. - Physiologic and physical aspects of tobacco addiction as well as strategies for quitting were discussed. - Counseling was given focusing on the harmful effects of this addiction especially given the patient's medical condition(s) which will be worsened because of the chemicals in tobacco. - Counseling was given 3-4 minutes. Discussed above plan with patient. Pt agreeable with above plan. Jessenia Renee MD This note was partially generated using [employer] voice recognition system, and there may be some incorrect words, spellings, and punctuation that were not noted in checking the note before saving. documented in this encounter Assessments Diagnosis Type 2 diabetes mellitus without complication, without long-term current use of insulin (HCC)- Primary Hyperlipidemia, unspecified hyperlipidemia type Gastroesophageal reflux disease, unspecified whether esophagitis present Class 3 severe obesity due to excess calories with serious comorbidity and body mass index (BMI) of 40.0 to 44.9 in adult (HCC) Tobacco use disorder Screening for deficiency anemia Screening for other and unspecified deficiency anemia Diagnosis OPENED IN ERROR- Primary To allow closing an encounter opened in error (used in SmartSet) Diagnosis Type 2 diabetes mellitus without complication, without long-term current use of insulin (HCC)- Primary Hyperlipidemia, unspecified hyperlipidemia type Gastroesophageal reflux disease, unspecified whether esophagitis present Chronic pain of left knee Pain in joint, lower leg Class 3 severe obesity due to excess calories with serious comorbidity and body mass index (BMI) of 40.0 to 44.9 in adult (HCC) Callus of foot Corns and callosities Tobacco use disorder Diagnosis Chest pain, unspecified type- Primary Instructions * Patient Instructions* Jessenia Renee - 07/26/2020 3:14 PM EST Monitor sugars as discussed, keep a log and bring it in for your next office visit. documented in this encounter Summary Purpose Family History No Family History Records FoundNo Family History Records FoundNo Family History Records Found Advance Directives No Advanced Directives Records FoundDocuments on File Type Date Recorded Patient Chairman & Ceo Expl anation Advance Directive(s) 08/26/2021 6:02 AM Advance Directive(s) 08/25/2021 1:25 PM Advance Directive(s) 08/10/2021 12:05 PM Advance Directive(s) 09/06/2020 10:41 PM Advance Directive(s) 08/28/2020 12:25 PM Documents on File Type Date Recorded Patient Chairman & Ceo Expl anation Advance Directive(s) 11/02/2021 5:33 PM Advance Directive(s) 11/01/2021 6:51 AM Advance Directive(s) 08/26/2021 6:02 AM Advance Directive(s) 08/25/2021 1:25 PM Advance Directive(s) 08/10/2021 12:05 PM Advance Directive(s) 09/06/2020 10:41 PM Advance Directive(s) 08/28/2020 12:25 PM Additional Source Comments Source Comments (unrecognize d section and content) In the event this informatio n is protected by the Federal Confidentiality of Alcohol and Drug Abuse Patient Records regulations: The Federal rules restrict any use of the information to criminally investigate or prosecute any alcohol or drug abuse patient.[facility], IncIn the event this information is protected by the Federal Confidentiality of Alcohol and Drug Abuse Patient Records regulations: The Federal rules restrict any use of the information to criminally investigate or prosecute any alcohol or drug abuse patient.[facility], IncIn the event this information is protected by the Federal Confidentiality of Alcohol and Drug Abuse Patient Records regulations: The Federal rules restrict any use of the information to criminally investigate or prosecute any alcohol or drug abuse patient.[facility], IncIn the event this information is protected by the Federal Confidentiality of Alcohol and Drug Abuse Patient Records regulations: The Federal rules restrict any use of the information to criminally investigate or prosecute any alcohol or drug abuse patient.[facility], IncIn the event this information is protected by the Federal Confidentiality of Alcohol and Drug Abuse Patient Records regulations: The Federal rules restrict any use of the information to criminally investigate or prosecute any alcohol or drug abuse patient.[facility], IncIn the event this information is protected by the Federal Confidentiality of Alcohol and Drug Abuse Patient Records regulations: The Federal rules restrict any use of the information to criminally investigate or prosecute any alcohol or drug abuse patient.[facility], IncIn the event this information is protected by the Federal Confidentiality of Alcohol and Drug Abuse Patient Records regulations: The Federal rules restrict any use of the information to criminally investigate or prosecute any alcohol or drug abuse patient.[facility], IncIn the event this information is protected by the Federal Confidentiality of Alcohol and Drug Abuse Patient Records regulations: The Federal rules restrict any use of the information to criminally investigate or prosecute any alcohol or drug abuse patient.[facility], IncIn the event this information is protected by the Federal Confidentiality of Alcohol and Drug Abuse Patient Records regulations: The Federal rules restrict any use of the information to criminally investigate or prosecute any alcohol or drug abuse patient.[facility], IncIn the event this information is protected by the Federal Confidentiality of Alcohol and Drug Abuse Patient Records regulations: The Federal rules restrict any use of the information to criminally investigate or prosecute any alcohol or drug abuse patient.[facility], IncIn the event this information is protected by the Federal Confidentiality of Alcohol and Drug Abuse Patient Records regulations: The Federal rules restrict any use of the information to criminally investigate or prosecute any alcohol or drug abuse patient.[facility], IncIn the event this information is protected by the Federal Confidentiality of Alcohol and Drug Abuse Patient Records regulations: The Federal rules restrict any use of the information to criminally investigate or prosecute any alcohol or drug abuse patient.[facility], IncIn the event this information is protected by the Federal Confidentiality of Alcohol and Drug Abuse Patient Records regulations: The Federal rules restrict any use of the information to criminally investigate or prosecute any alcohol or drug abuse patient.[facility] Reason for Visit (unrecogniz ed section and content) Reason Comments Establish Care Reason Onset Date Comments Opened In Error 07/13/2020 Reason Comments Medication Request Reason Comments Bilateral feet pain Burning X 4 days Reason Comments Chest Pain Pt coming from home c/o CP for the past hour (6/10 pain). Reason Comments Exposure to STD Pt reports that he w as exposed to HIV, but he is unsure when. Pt would like HIV test, states that he gets one every 6 months. Reason Comments New Patient CHOLELITHIASIS Reason Comments Wound Infection Pt states he had gal lbladder surgery. Pt states a week ago he started having tenderness and redness around naval site. Denies drainage or warmth. Reason Comments Post Op POST OP LAP ROCÍO Reason Comments Refill Request atorvastatin Reason Comments Refill Request test strips Reason Onset Date Comments Refill Request 02/04/2022 Telephone Encounter - Jessenia Renee - 07/07/2020 7:30 PM ESTTelephone Encounter - Jessenia Renee - 07/13/2020 12:02 PM ESTTelephone Encounter - Jennifer Kaufman MA - 07/13/2020 12:07 PM EST Miscellaneous Notes (unrecog nized section and content) Pt called ~ 730pm stating that he was seen earlier today in the office and had requested DM supplies to be sent to the pharmacy. He called the [facility] pharmacy and they didn't have it. I told the pt that I will look into it. On review of chart, the DM supplies were sent in to the [facility] pharmacy during his visit. documented in this encounter This encounter was opened in error. Jessenia Renee MD documented in this encounter Called pt to inform of RX sent Jennifer Kaufman MA 07/13/20 12:08 Rx sent in for Metformin and Atorvastatin. ----- Message from Cecelia Townsend LPN sent at 07/13/2020 10:02 AM EST ----- Spoke with pt. He confirmed understanding of Tx plan and clinical advise, Per pt last Metformin dose was 500 mg Twice daily . Pt mailed medical release form. Cecelia Townsend LPN documented in this encounter Reached out to pt to give update, pt voiced understanding Pt scheduled for appt on 07/26 @ 2:40pm Pt stated that Tylenol does not work for foot pain Presley Noted. Please advise pt to make appt for eval. In the meantime he can try OTC tylenol. Pt called office today stating that he is having foot pain in both feet Pt stated that he is diabetic and has been having four days of pain in feet; he described pain as internal soreness and burning sensation; no signs of fever, cough or headache Pt stated that he feels that it may be possible signs of diabetic neuropathy Pt is requesting any medication to assist with foot pain to be sent to [facility] on [address]. Please advise Presley documented in this encounter (unrecognized sect ion and content) No Status Records FoundNo Status Records FoundNo Status Records Found INFORMATION SOURCE (unrecogn ized section and content) DATE CREATED AUTHOR AUTHOR'S ORGANIZ ATION 11/14/2021 [facility] tem DATE CREATED AUTHOR AUTHOR'S ORGANIZ ATION 12/15/2022 [facility] Care Teams (unrecognized sec tion and content) Roving Teller Relationship Specialty Start Date End Date Deep Donnelly, [address], [place] [id number] PCP - General Internal Medicine 06/04/21 Tonie Johnson MD [address] [place], [place] [id number] PCP Resident Internal Medicine 06/04/21 Roving Teller Relationship Specialty Start Date End Date Chay Saunders MD [address] [place], [place] [id number] PCP - General Internal Medicine 12/21/21 Tonie Johnson MD [address] [place], [place] [id number] PCP Resident Internal Medicine 06/04/21 Roving Teller Relationship Specialty Start Date End Date Chay Saunders MD [address] [place], [place] [id number] PCP - General Internal Medicine 12/21/21 03/07/22 Ordered Prescriptions (unrec ognized section and content) FOR RECORDS PERTAINING TO PATIENTS WHO ARE OR HAVE BEEN ENROLLED IN A CHEMICAL DEPENDENCY/SUBSTANCEABUSE PROGRAM, SOME INFORMATION MAY BE OMITTED. This clinical summary was aggregated from multiple sources. Caution should be exercised in using it in the provision of clinical care. This summary normalizes information from multiple sources, and as a consequence, information in this document may materially change the coding, format and clinical context of patient data. In addition, data may be omitted in some cases. CLINICAL DECISIONS SHOULD BE BASED ON THE PRIMARY CLINICAL RECORDS. [facility]. provides no warranty or guarantee of the accuracy or completeness of information in this document.
== END 2023-08-21 15:00 | disposition left against medical advice (07) ==
LOC: ED 15:10
DX: Z53.21 Procedure and treatment not carried out due to patient leaving prior to being seen by health care provider (principal)

== ENCOUNTER 2023-09-06 08:13 | Emergency (ER) | payer MEDICAID, SELFPAY ==
[2023-09-06 08:14] VITALS: BP 176/94; PULSE 96; RESP 14; TEMP 36.5; O2SAT 97; BMI 42.1
--- NOTE | 2023-09-06 09:17 | EX.ED.GUMALE ---
HPI History of Present Illness Chief Complaint: Male Pain/Injury Narrative Narrative: 42-year-old male presenting with irritation around the base of the glans penis. Patient states he was having sexual intercourse with his girlfriend and they decided use a new position and he noticed he was irritated at this point. Patient states this happened about 4 days ago. Patient denies concern for STD. Patient states it is all due to the sexual intercourse that day. Denies dysuria or hematuria. No urinary symptoms. No high risk sex. PFSH PFSH Home Medications pantoprazole 40 mg tablet,delayed release 40 mg PO DAILY 08/27/17 [History Last Taken Unknown] albuterol sulfate 90 mcg/actuation aerosol inhaler (Ventolin HFA) 2 puff IH Q4H PRN PRN Wheezing 10/22/17 [History Last Taken Unknown] Allergy/AdvReac Type Severity Reaction Status Date / Time onion Allergy Angioedema Verified 09/06/23 08:15 Social History Smoking Status: Current every day smoker ROS ROS ED Constitutional Constitutional ED: Denies chills, fever(s) or sweats Eyes Eyes: Denies blurry vision or change in vision ENT ENT ED: Denies ear pain or sore throat Cardiovascular Cardiovascular: Denies chest pain, palpitations or racing heartbeat Respiratory/Chest Respiratory/Chest: Denies cough, dyspnea or sputum Gastrointestinal Gastrointestinal: Denies abdominal pain, constipation, diarrhea, nausea or vomiting Genitourinary Genitourinary ED: Reports other Details: Irritation to the glans penis ; Denies dysuria, hematuria or urinary frequency Musculoskeletal Musculoskeletal: Denies arthralgias, myalgias or neck pain Integumentary Denies abscess, Abrasions or rash Neurologic Neurologic: Denies headache(s), paresthesias or weakness Psychiatric Psychiatric: Denies anxiety, depression, suicidal ideation or suicidal thoughts Endocrine Endocrinology: Denies polydipsia or polyuria EXAM Physical Exam Const Vital Signs: 09/06/23 08:14 Temperature 97.7 F L Temperature Source Temporal Pulse Rate 96 Respiratory Rate 14 Blood Pressure 176/94 H Blood Pressure Mean 121 Pulse Ox 97 Oxygen Delivery Method Room Air Positive well nourished General Appearance ED: NAD; Negative for pallor Resp normal respiratory effort Cardio regular rate and regular rhythm Narrative: Mild irritation to the ventral surface of the glans penis. No chancre. No vesicles. No urethral discharge. No testicular pain. Neuro oriented x3 Sensorium / Orientation: alert Motor Exam: strength 5/5 throughout Psych mental status grossly normal Skin General Skin Exam: Negative for jaundice or pallor MDM MDM MDM Narrative Medical decision making narrative: Patient presenting with irritation of the glans penis. He states this occurred after sexual intercourse with his girlfriend. He has no concern for STDs. He describes it as a friction burn. Patient has not tried anything for this. I recommended [id number] antibiotic ointment and Desitin. Counseled him not to have sexual intercourse until symptoms improved. I do not believe he needs any antibiotics. I do not believe he needs urine, lab work, imaging. Patient counseled on return precautions. Impression: 1. balanitis Lab Data Attestation: I reviewed the patient's lab results. Discharge Plan Triage Chief Complaint: Male Pain/Injury ED Provider: Jas Enriquez Dx/Rx/DC Orders Instructions: ED Balanitis Prescriptions: No Action pantoprazole 40 MG tablet 40 mg PO DAILY albuterol sulfate [Ventolin HFA] 18 GM HFA aerosol inhaler 2 puff IH Q4H PRN PRN (Reason: Wheezing) Patient Comments: inhale 2 puffs by mouth every 4 hours if needed for COUGH / SHORTNESSOF BREATH Primary Care Provider: [facility] Julissa Eddy Referrals: [facility] Julissa Eddy [Primary Care Provider] - Disposition Disposition: Home, Self Care
[2023-09-06 09:51] VITALS: BP 129/87; PULSE 74; RESP 17; TEMP 36.7; O2SAT 96
[2023-09-06 09:59] VITALS: BP 129/87; PULSE 74; RESP 16; TEMP 36.6; O2SAT 96
== END 2023-09-06 10:02 | disposition home or self-care (01) ==
LOC: ED 09:52
PROVIDERS: Emergency Provider Student in an Organized Health Care Education/Training Program; Visit Provider Student in an Organized Health Care Education/Training Program
DX: N48.1 Balanitis (principal); F17.200 Nicotine dependence, unspecified, uncomplicated
CPT/HCPCS: 99282